=== PATIENT | female | born 1960 | race Caucasian/White ===

== ENCOUNTER 2017-04-11 07:47 | Emergency (ER) | payer SELFPAY ==
--- NOTE | 2017-04-11 09:23 | RAD ---
PORTABLE UPRIGHT FRONTAL CHEST RADIOGRAPH: Date: 04/11/17 COMPARISON: None. HISTORY: Flu-like symptoms, cough. FINDINGS: Mild linear interstitial density noted. No pneumothorax or pleural fluid. No focal consolidation or a lveolar edema. Lungs are mildly hyperinflated. IMPRESSION: No acute findings. POS: [facility]
== END 2017-04-11 10:13 | disposition home or self-care (01) ==
LOC: ERS 07:47
DX: J11.1 Influenza due to unidentified influenza virus with other respiratory manifestations (principal); Z87.891 Personal history of nicotine dependence
CPT/HCPCS: 71045; 87804

== ENCOUNTER 2017-04-27 18:18 | Emergency (ER) | payer OTHER, SELFPAY ==
[2017-04-27] MEDS ORDERED: Acetaminophen 500 MG TAB ONE (19:39)
[2017-04-27] MEDS ORDERED: Azithromycin 250 MG TAB ONE (20:32)
[2017-04-27 21:08] LABS: Band 4 % (5-11); Hemoglobin 12.3 g/dL (12.0-16.0); Lymphocytes 9 % (21-51); MDiff Complete? YES; Mean Corpuscular HGB CONC 33.1 g/dL (32.0-36.0); Mean Corpuscular Hemoglobin 30.9 pg (27.0-31.0); Mean Corpuscular Volume 93.5 fl (81.0-99.0); Mean Platelet Volume 6.8 fL (7.4-10.4); Monocytes 4 % (0-10); Neutrophil 83 % (42-75); PLT Morphology Comment Appears Adequate; Platelet Count 322 thou/uL (130-400); RBC Distribution Width 11.9 % (11.5-14.5); Red Blood Cell (RBC) Count 3.97 mill/uL (4.20-5.40); White Blood Cell (WBC) Count 17.7 thou/uL (4.8-10.8)
[2017-04-27 21:12] LABS: ALT (SGPT) 21 U/L (8-55); AST (SGOT) 23 U/L (5-34); Albumin 3.8 g/dL (3.5-5.0); Alkaline Phosphatase 85 U/L (40-150); Anion Gap 17 mmol/L (10-20); BUN (Urea Nitrogen) 11 mg/dL (9.8-20.1); Bilirubin, Total 0.4 mg/dL (0.2-1.2); Calc. Creatinine Clearance 0 mL/min (70-130); Calcium 9.1 mg/dL (7.8-10.44); Carbon Dioxide 19 mmol/L (22-29); Chloride 103 mmol/L (98-107); Estimated GFR-MDRD 74; Globulin 3.5 g/dL (2.4-3.5); Glucose 93 mg/dL (70-105); Protein, Total 7.3 g/dL (6.0-8.3); Sodium 135 mmol/L (136-145)
--- NOTE | 2017-04-27 21:59 | RAD ---
TWO VIEWS CHEST 04/27/17 PROVIDED CLINICAL HISTORY: Cough. FINDINGS: Comparison is made with the study dated 04/11/17. The cardiac and mediastinal silhouette is unchanged in appearance. There are several nodular opacitie s overlying the right mid lung zone on the frontal view which were not definitely seen on the prior s tudy. The lungs appear otherwise clear. There is no pleural fluid or pneumothorax apparent. IMPRESSION: Nonspecific nodular opacities involving the right mid lung zone. These could be infectious in etiolog y. Followup after treatment is recommended to evaluate for resolution. POS: [facility]
== END 2017-04-27 21:51 | disposition home or self-care (01) ==
LOC: ERS 18:18
DX: J18.9 Pneumonia, unspecified organism (principal); Z87.891 Personal history of nicotine dependence
CPT/HCPCS: 71046; 80053; 83605; 85025; 87081; 87430; 94640; 96361; 96374; J0696; J7620